=== PATIENT | male | born 1975 | race Caucasian/White ===

== ENCOUNTER 2018-09-08 06:18 | Emergency (ER) | payer OTHER ==
[~2018-09-08] VITALS: Ht 167.6 cm; Wt 99.4 kg
[2018-09-08 06:34] VITALS: RESP 20; Ht 167.6 cm; Wt 99.4 kg
[2018-09-08] MEDS ORDERED: LIDOCAINE 4% CR TOP ONE (08:30)
[2018-09-08] MEDS ORDERED: HYDROCODONE/APAP (5/325) TAB PO ONE (08:30)
[2018-09-08] MEDS ORDERED: TRIMETHOPRIM/SULFAMETHOX (DS) TAB PO ONE (08:30)
[2018-09-08] MEDS ORDERED: CEPHALEXIN 500 MG CAP PO ONE (08:30)
[2018-09-08] MEDS ORDERED: SULF1TAB31 PO (10:30)
[2018-09-08] MEDS ORDERED: CEPH-443 PO (10:30)
[2018-09-08] MEDS ORDERED: HYDR-4011 PO (10:32)
[2018-09-08 11:02] VITALS: BP 135/79; PULSE 98
--- NOTE | 2018-09-08 13:10 | ERD ---
ER Documentation Chief Complaint Chief Complaint Patient complains of pain around the rectal area HPI 42-year-old male presents with of pain and an mass on his anal area started last Saturday. States the pain is 9/10 in intensity and he has been refraining from having a bowel movement for past 24 hours due to the pain. Taking Advil. Denies fevers, chills, history of hemorrhoids, rectal bleeding.. Denies past medical history. Denies allergies. Denies medications. Denies surgeries. Denies alcohol, tobacco, drug use. Up to date on vaccines. ROS All systems reviewed and are negative except as per history of present illness. Medications Home Meds Active Scripts Hydrocodone/Acetaminophen ([place] 5-325 Tablet) 1 Each Tablet, 1 TAB PO Q6H PRN for PAIN, #10 TAB Prov:BANG SHORE 09/08/18 Cephalexin* (Keflex*) 500 Mg Capsule, 500 MG PO QID for abscess for 7 Days, CAP Prov:BANG SHORE 09/08/18 Sulfamethoxazole/Trimethoprim* (Bactrim Ds* Tablet) 1 Each Tablet, 1 TAB PO BID for 7 Days, #14 TAB Prov:BANG SHORE 09/08/18 Allergies Allergies: Coded Allergies: No Known Allergy (Unverified , 09/08/18) PMhx/Soc Medical and Surgical Hx: pt denies Medical Hx, pt denies Surgical Hx Hx Substance Use: No Hx Tobacco Use: Yes Smoking Status: Current every day smoker Physical Exam Vitals Vital Signs Date Temp Pulse Resp B/P (MAP) Pulse Ox O2 O2 Flow FiO2 Time Delivery Rate 09/08/18 98 135/79 98 11:02 (97) 09/08/18 98.0 115 20 150/87 97 06:34 (108) Physical Exam Const: No acute distress Resp: Clear to auscultation bilaterally Cardio: Regular rate and rhythm, no murmurs Rectal: 3 cm fluctuant and erythematous mass noted on the left intergluteal cleft, lateral to the anus. Tender to palpation with no discharge or bleeding noted. Neur: Awake and alert Psych: Normal Mood and Affect Results 24 hrs Current Medications Medications Dose Sig/Jhonathan Start Time Status Last (Trade) Ordered Route PRN Stop Time Admin Dose Reason Admin Lidocaine 1 applic ONCE ONCE 09/08/18 DC (Lmx 4% Plus) TOP 08:30 09/08/18 08:36 Cephalexin 500 mg ONCE ONCE 09/08/18 DC 09/08/18 (Keflex) PO 08:30 08:44 09/08/18 08:36 1 tab ONCE ONCE 09/08/18 DC 09/08/18 Acetaminophen PO 08:30 08:45 / 09/08/18 08:36 Hydrocodone Bitart ([place] (5/325)) 1 tab ONCE ONCE 09/08/18 DC 09/08/18 Trimethoprim/ PO 08:30 08:44 09/08/18 08:31 Sulfamethoxaz ole (Bactrim (Ds)) Procedures/MDM ER Course: Pain medication given, Bactrim and Keflex given. I&D performed. W ound dressing applied. Abscess Incision and Drainage with irrigation by me: Location: Left intergluteal cleft, lateral to the rectum. Anesthesia: Local 1% Lidocaine Technique: Disrupted loculations w/ instrumentation Packing: Iodoform strips Complications: Neurovascularly intact post procedure 48 hour wound check. Scar minimization instructions given. 42-year-old male presents with of pain and an mass on his anal area started last Saturday. States the pain is 9/10 in intensity and he has been refraining from having a bowel movement for past 24 hours due to the pain. Taking Advil. Denies fevers, chills, history of hemorrhoids, rectal bleeding. Presentation is consistent with perianal abscess. I have low suspicion for perirectal abscess, fistula, or other emergent condition. Patient is afebrile and has no chills. Patient given Rx for Keflex and Bactrim as well as [place] for pain. Patient to return in 2 days for wound check and for removal of packing. Patient given wound care instructions. Patient discharged with strict ER precautions. Patient advised to follow up with PMD. All questions answered at discharge. Departure Diagnosis: Primary Impression: Perianal abscess Condition: Stable Patient Instructions: Abscess Drainage, Belle-Anal Abscess, I And D Referrals: [facility] YOU HAVE RECEIVED A MEDICAL SCREENING EXAM AND THE RESULTS INDICATE THAT YOU DO NOT HAVE A CONDITION THAT REQUIRES URGENT TREATMENT IN THE EMERGENCY DEPARTMENT. FURTHER EVALUATION AND TREATMENT OF YOUR CONDITION CAN WAIT UNTIL YOU ARE SEEN IN YOUR DOCTORS OFFICE WITHIN THE NEXT 1-2 DAYS. IT IS YOUR RESPONSIBILITY TO M ELIAS AN APPOINTMENT FOR FOLOW-UP CARE. IF YOU HAVE A PRIMARY DOCTOR --you should call your primary doctor and schedule an appointment IF YOU DO NOT HAVE A PRIMARY DOCTOR YOU CAN CALL OUR PHYSICIAN REFERRAL HOTLINE AT IF YOU CAN NOT AFFORD TO SEE A PHYSICIAN YOU CAN CHOSE FROM THE FOLLOWING [facility] [address] [facility] [address] [facility] [address] [facility] [address] [facility] [address] [facility]. [facility] [address] Additional Instructions: Return to this facility in 2 DAYS for a follow-up exam.Return sooner if your condition worsens. BANG SHORE Sep 08, 2018 13:10
== END 2018-09-08 11:04 | disposition home or self-care (01) ==
LOC: FTE 06:18
DX: K61.0 Anal abscess (principal); F17.210 Nicotine dependence, cigarettes, uncomplicated